=== PATIENT | male | born 1970 | race African-American/Black ===

== ENCOUNTER → 2019-12-10 19:01 | Emergency (ER) | payer SELFPAY ==
--- NOTE | 2019-12-10 19:21 | ED ---
Psychiatric Complaint - HPI Summary HPI Summary: The patient is a 49-year-old male brought in by police [place] [facility] [place] 941 with a chief complaint of delusional thinking tonight. Per police report, the patient was rambling, smelled of alcohol, emotional, wants to hurt people, barefoot, verbal threats, slurred speech. In the ED, patient states everyone is yelling at him, I know what I doIm not going to tell. I am MuslimSara is coming upneed good energycant have anyone around be for 30 days. He reports he lives with his family but he doesnt trust them. He called the police tonight because he was at his nieces house babysitting and she began arguing with him. He denies any suicidal or homicidal ideations here. Past medical history includes asthma. Current smoker. Admits to daily alcohol use (30 beers a day), cocaine and marijuana use. LEVEL 5 CAVEAT SECONDARY TO PATIENT WITH DELUSIONAL THINKING/POOR HISTORIAN. - History Of Current Complaint Time Seen by Provider: 12/10/19 19:13 Hx Obtained From: Patient, Medical Records Hx From Patient Unobtainable Due To: Other - LEVEL 5 CAVEAT SECONDARY TO PATIENT WITH DELUSIONAL THINKING/POOR HISTORIAN. Onset/Duration: Still Present Has Suicidal: Denies: Thoughts Has Homicidal: Denies: Thoughts - patient denies but police report patient verbally threatening and stating he wants to hurt others - Allergies/Home Medications Allergies/Adverse Reactions: Allergies Allergy/AdvReac Type Severity Reaction Status Date / Time No Known Allergies Allergy Verified 09/09/13 07:46 Home Medications: Home Medications NK [No Home Medications Reported] 12/10/19 [History Confirmed 12/10/19] PMH/Surg Hx/FS Hx/Imm Hx Endocrine/Hematology History: Denies: Hx Diabetes Cardiovascular History: Denies: Hx Hypercholesterolemia, Hx Hypertension Respiratory History: Reports: Hx Asthma Psychiatric History: Denies: Hx Eating Disorder, Hx of Violent Episodes Against Others - Surgical History Surgical History: None - Family History Known Family History: Positive: Unknown - patient poor historian - Social History Alcohol Use: Daily Alcohol Amount: DRINKS 30 BEERS A DAY Substance Use Type: Reports: Cocaine, Marijuana Review of Systems Positive: Other - rambling, delusional; Negative: suicidal/homicidal ideation All Other Systems Reviewed And Are Negative: No - Comments Additional Review of Systems Comments: LEVEL 5 CAVEAT SECONDARY TO PATIENT WITH DELUSIONAL THINKING/POOR HISTORIAN Physical Exam - Summary Physical Exam Summary: VITAL SIGNS: Reviewed. GENERAL: Patient is a well-developed and nourished male who is lying comfortable in the stretcher. Patient is not in any acute respiratory distress. HEAD AND FACE: No signs of trauma. No ecchymosis, hematomas or skull depressions. No sinus tenderness. EYES: PERRL, EOMI x 2, No injected conjunctiva, no nystagmus. EARS: Hearing grossly intact. Ear canals and tympanic membranes are within normal limits. MOUTH: Oropharynx within normal limits. NECK: Supple, trachea is midline, no adenopathy, no JVD, no carotid bruit, no c- spine tenderness, neck with full ROM. CHEST: Symmetric, no tenderness at palpation. LUNGS: Clear to auscultation bilaterally. No wheezing or crackles. CVS: Regular rate and rhythm, S1 and S2 present, no murmurs or gallops appreciated. ABDOMEN: Soft, non-tender. No signs of distention. No rebound, no guarding, and no masses palpated. Bowel sounds are normal. EXTREMITIES: FROM in all major joints, no edema, no cyanosis or clubbing. NEURO: Alert and oriented x 3. No acute neurological deficits. Speech is normal and follows commands. SKIN: Dry and warm. PSYCH: Delusional thinking, word salad, denies any suicidal thoughts or plan. No homicidal thoughts or plan. Tangential speech. Triage Information Reviewed: Yes Vital Signs Reviewed: Yes Completion Of Physical Exam Limited Due To: Level 5 - PATIENT WITH DELUSIONAL THINKING/POOR HISTORIAN Procedures - Sedation Patient Received Moderate/Deep Sedation with Procedure: No Diagnostics - Laboratory Result Diagrams: 12/10/19 19:25 12/10/19 19:25 Lab Statement: Any lab studies that have been ordered have been reviewed, and results considered in the medical decision making process. Re-Evaluation - Re-Evaluation First Eval Re-Evaluation Time: 19:20 Comment: Patient is medically cleared for MHE. Course/Dx - Course Assessment/Plan: The patient is a 49-year-old male brought in by police [place] [facility] [place] 941 with a chief complaint of delusional thinking tonight. Per police report, the patient was rambling, smelled of alcohol, emotional, wants to hurt people, barefoot, verbal threats, slurred speech. In the ED, patient states everyone is yelling at him, I know what I doIm not going to tell. I am Jesús is coming upneed good energycant have anyone around be for 30 days. He reports he lives with his family but he doesn t trust them. He called the police tonight because he was at his nieces house babysitting and she began arguing with him. He denies any suicidal or homicidal ideations here. Past medical history includes asthma. Current smoker. Admits to daily alcohol use (30 beers a day), cocaine and marijuana use. LEVEL 5 CAVEAT SECONDARY TO PATIENT WITH DELUSIONAL THINKING/POOR HISTORIAN. Blood work w/o a significant abnormality. He is medically cleared. He is awaiting a MHE. Patient is hemodynamically stable and A+O x 3. Patient will sign out to Dr. Sawyer at shift change. - Differential Dx/Clinical Impression Differential Diagnosis/HQI/PQRI: Positive: Acute Psychosis, Anxiety Provider Diagnosis: Alcohol use disorder - Critical Care Time Critical Care Statement: Critical care time is provided exclusive of any time spent performing procedures. Discharge ED - Sign-Out/Discharge Documenting (check all that apply): Sign-Out Patient Signing out patient TO: Ambrose Sawyer - Patient is a sign-out to Dr. Ambrose Sawyer MD, at 2100 on 12/10/2019, pending medical clearance, MHE, and disposition. 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 Pt just got out of Rehab program in [place] 5 weeks ago. Pt was in a [facility] in [place] for 8 months. Patient states his family kicked him out. He was staying with niece. and step father. Patient states that his family was not respecting him, and appreciating the changes that he hs made. They were telling him what to do. They are not used to him standing up for himself. Pt states he went to the gas station and called the police. Pt admits he had been drinking, but was more depressed than intoxicated Pt was depressed and angry but denies wanting to hurt himself. Pt denies homicidal ideation. Pt does not want to go back to his family. Considers himself homeless. Pt want to go to long term if he cannot be admitted. Pt states he has only used alcohol 3 times since he has been out of rehab. Patient to follow up with [facility], [address] [place] [address]. . Patient should also follow up with [facility] at [address] [place] [address]. . IMPORTANT PHONE NUMBERS: [facility] Behavioral Services Unit: [facility] Emergency Room Behavioral Pod: Suicide Prevention and Crisis Services: The Chat: Text (free and confidential online crisis service sponsored by [facility] Suicide Prevention, available Wednesday-Wednesday 6pm 9pm) National Suicide Prevention Lifeline: (802) 610-RDBV (9260) National Crisis Text Line: Text HELLO to 797373 [facility]: [facility] Outreach for Older Adults: [facility] Mental Health Association: [facility]: [place] [facility]: [phone] Alcohol and Drug [facility]: [phone] - Billing Disposition and Condition Condition: STABLE - Attestation Statements Document Initiated by Scribe: Yes Documenting Scribe: Xiao Morales Provider For Whom Fidel is Documenting (Include Credential): David Morales MD Scribe Attestation: I, Xiao Morales, scribed for David Morales MD on 12/12/19 at 0758. Scribe Documentation Reviewed: Yes Provider Attestation: The documentation as recorded by the nataibeXiao accurately reflects the service I personally performed and the decisions made by me, David Morales MD Status of Scribe Document: Viewed
[2019-12-10 19:47] LABS: Urine Appearance Clear; Urine Bilirubin Negative (Negative); Urine Blood 1+ (Negative); Urine Color Colorless; Urine Glucose Negative (Negative); Urine Ketones Negative (Negative); Urine Nitrite Negative (Negative); Urine Protein Negative (Negative); Urine Specific Gravity 1.003 (1.010-1.030); Urine Urobilinogen Negative (Negative)
[2019-12-10 19:54] LABS: Urine Bacteria Absent (Absent); Urine Red Blood Cell Absent (Absent); Urine White Blood Cell Absent (Absent)
[2019-12-10 20:03] LABS: Urine Benzodiazepine Screen None Detected (None Detect); Urine Opiates Screen None Detected (None Detect)
[2019-12-10 20:21] LABS: ABS Basophils 0.1 10^3/ul (0-0.2); ABS Eosinophils 0.3 10^3/ul (0-0.6); ABS Lymphocytes 3.3 10^3/ul (1.0-4.8); ABS Monocytes 0.4 10^3/ul (0-0.8); ABS Neutrophils 3.7 10^3/ul (1.5-7.7); Eosinophil % 3.3 %; Hematocrit 45 % (42-52); Hemoglobin 15.5 g/dL (14.0-18.0); Lymphocyte % 42.8 %; Mean Corpuscular HGB Conc 34 g/dL (31-36); Mean Corpuscular Hemoglobin 32 pg (27-31); Mean Corpuscular Volume 91 fL (80-94); Mean Platelet Volume 8.2 fL (7.4-10.4); Nucleated Red Blood Cells % 0.1; Platelet Count 307 10^3/uL (150-450); Red Blood Count 4.91 10^6 /uL (4.18-5.48); Red Cell Distribution Width 15 % (10-15); White Blood Count 7.7 10^3/uL (3.5-10.8)
[2019-12-10 20:44] LABS: ALT 19 U/L (7-52); AST 26 U/L (13-39); Albumin 4.6 g/dL (3.2-5.2); Albumin/Globulin Ratio 1.4 (1-3); Alkaline Phosphatase 80 U/L (34-104); Anion Gap 10 mmol/L (2-11); BUN/Creatinine Ratio 11.2 (8-20); Blood Urea Nitrogen 10 mg/dL (6-24); CO2 Carbon Dioxide 22 mmol/L (22-32); Calcium 9.3 mg/dL (8.6-10.3); Chloride 109 mmol/L (101-111); EGFR African American 109.5 (>60); EGFR Non-African American 90.5 (>60); Globulin 3.4 g/dL (2-4); Glucose 86 mg/dL (70-100); Potassium 4.4 mmol/L (3.5-5.0); Sodium 141 mmol/L (135-145)
[2019-12-10 20:46] LABS: Acetaminophen < 15 mcg/mL; Alcohol 239 mg/dL (<10); Salicylate < 2.50 mg/dL (<30)
--- NOTE | 2019-12-10 21:36 | ED ---
Progress - Progress Note Progress Note: Patient is received as a sign-out from Dr. Morales to Dr. Sawyer at 209912/10/19 shift change pending MHE of this mental health patient. No changes in the status of this patient throughout duration of ED shift. Patient is signed out to Dr. Diaz at 12/11/19 0700 shift change pending MHE. Re-Evaluation - Re-Evaluation First Eval Re-Evaluation Time: 19:20 Comment: Patient is medically cleared for MHE. Course/Dx - Course Course Of Treatment: Patient is received as a sign-out from Dr. Morales to Dr. Sawyer at 209912/10/19 shift change pending MHE of this mental health patient. No changes in the status of this patient throughout duration of ED shift. Patient is signed out to Dr. Diaz at 12/11/19 0700 shift change pending MHE. - Diagnoses Provider Diagnoses: Psychosis - Critical Care Time Critical Care Statement: Critical care time is provided exclusive of any time spent performing procedures. Discharge ED - Sign-Out/Discharge Documenting (check all that apply): Sign-Out Patient, Receiving Sign-Out Signing out patient TO: Regulo Diaz Receiving patient FROM: David Morales - Discharge Plan Condition: Stable Referrals: No Primary Care Phys,NOPCP [Primary Care Provider] - - Attestation Statements Document Initiated by Scribe: Yes
--- NOTE | 2019-12-11 07:06 | ED ---
Progress - Progress Note Progress Note: 49 y/o M signed out from Ambrose Sawyer MD upon shift change 12/11/19 0700 pending MHE. Re-Evaluation - Re-Evaluation First Eval Re-Evaluation Time: 19:20 Comment: Patient is medically cleared for MHE. Course/Dx - Diagnoses Provider Diagnoses: Alcohol use disorder - Provider Notifications Discussed Care Of Patient With: Azam Martinze - Recommends d/c and outpatient f /u Time Discussed With Above Provider: 10:15 - Critical Care Time Critical Care Statement: Critical care time is provided exclusive of any time spent performing procedures. Discharge ED - Sign-Out/Discharge Documenting (check all that apply): Patient Departure, Receiving Sign-Out Receiving patient FROM: Ambrose Sawyer - Discharge Plan Condition: Stable Disposition: HOME Referrals: No Primary Care Phys,NOPCP [Primary Care Provider] - - Billing Disposition and Condition Condition: STABLE Disposition: Home - Attestation Statements Document Initiated by Scribe: Yes Documenting Scribe: Nevin Smith Provider For Whom Scribe is Documenting (Include Credential): Regulo Diaz MD Scribe Attestation: INevin, scribed for eRgulo Diaz MD on 12/11/19 at 1032. Scribe Documentation Reviewed: Yes Provider Attestation: The documentation as recorded by the Nevin miguel accurately reflects the service I personally performed and the decisions made by Regulo guillen MD Status of Scribe Document: Viewed
[2019-12-11 10:34] VITALS: BP 144/96
== END | disposition home or self-care (01) ==
LOC: ED 19:01
DX: F10.10 Alcohol abuse, uncomplicated (principal); F29 Unspecified psychosis not due to a substance or known physiological condition; F17.210 Nicotine dependence, cigarettes, uncomplicated; J45.909 Unspecified asthma, uncomplicated; F14.90 Cocaine use, unspecified, uncomplicated; F12.90 Cannabis use, unspecified, uncomplicated
CPT/HCPCS: 36415; 80053; 80307; 80320; 80329; 81003; 81015; 84443; 85025; 99285; G0480